=== PATIENT | female | born 1975 | race Caucasian/White ===

== ENCOUNTER 2018-07-14 14:01 | Emergency (ER) | payer MEDICAID ==
[~2018-07-14] VITALS: Ht 157.5 cm; Wt 95.3 kg
[2018-07-14 14:36] VITALS: Ht 157.5 cm; Wt 95.3 kg
[2018-07-14 17:11] LABS: UA SPECIFIC GRAVITY <=1.005 (1.005-1.035); microscopic required? YES; urine erythrocyte TRACE (NEGATIVE)
[2018-07-14 17:35] VITALS: BP 99/48
== END 2018-07-14 17:35 | disposition home or self-care (01) ==
LOC: ED 14:01
PROVIDERS: Specialist
DX: N39.0 Urinary tract infection, site not specified (principal); I10 Essential (primary) hypertension; E11.9 Type 2 diabetes mellitus without complications
CPT/HCPCS: 82962; J0696; J1885; J2001